=== PATIENT | female | born 1980 | race Caucasian/White ===

== ENCOUNTER → 2018-11-30 | Outpatient (CLI) | payer OTHER | END | disposition home or self-care (01) | LOC: MCT 21:43 | DX: R55 Syncope and collapse (principal) | CPT/HCPCS: 70450 ==

== ENCOUNTER 2022-04-08 10:03 | Emergency (ER) | payer OTHER ==
[~2022-04-08] VITALS: Ht 157.5 cm; Wt 68.0 kg
--- NOTE | 2022-04-08 10:36 | NUR ---
nura and flu swabbed
[2022-04-08 10:37] VITALS: BP 132/88
--- NOTE | 2022-04-08 10:47 | NUR ---
WALKED SWABS TO LAB, HANDED TO CPT. MAURY
--- NOTE | 2022-04-08 11:30 | NUR ---
PT AMBULATED TO BED 02.
[2022-04-08] MEDS ORDERED: BENZ-300 PO (12:37)
[2022-04-08] MEDS ORDERED: PROM118S5 PO (12:37)
[2022-04-08 13:00] VITALS: BP 134/74
--- NOTE | 2022-04-08 13:00 | NUR ---
Patient discharged with v/s stable. Written and verbal after care instructions given and explained. Patient verbalized understanding. Ambulatory with steady gait. All questions addressed prior to discharge. Advised to follow up with PMD.
== END 2022-04-08 13:00 | disposition home or self-care (01) ==
LOC: MED 10:03
DX: J06.9 Acute upper respiratory infection, unspecified (principal); Z20.822 Contact with and (suspected) exposure to COVID-19; I10 Essential (primary) hypertension
CPT/HCPCS: 99283